=== PATIENT | male | born 1985 | race Caucasian/White ===

== ENCOUNTER 2017-06-05 11:18 | Emergency (ER) | payer OTHER ==
[~2017-06-05] VITALS: Ht 180.3 cm; Wt 81.0 kg
[~2017-06-05 11:18] MED LIST: ACET-1256 PO; AMOX875T PO
[2017-06-05 11:23] VITALS: TEMP 36.7; Ht 180.3 cm; Wt 81.0 kg
[2017-06-05] MEDS ORDERED: PROPARACAINE HCL 0.5% OP SOLN 15 ML BTL ONE (11:29)
[2017-06-05] MEDS ORDERED: OFLOXACIN 0.3% OP SOLN 5 ML BTL OP STA (13:17)
[2017-06-05] MEDS ORDERED: OXYC-57 PO ×2 (13:31→15:52)
--- NOTE | 2017-06-05 13:31 | EMERGENCY ROOM VISIT NOTE ---
History First contact with patient: 12:03 Chief Complaint: EYE ASSESSMENT Stated Complaint: LEFT EYE FOGGY History of Present Illness The patient is a 31 year old male who presents to the Emergency Room via private vehicle with complaints of "left eye foggy". The patient states that yesterday he was wearing contacts, remove them before bed but woke up today with extreme left eye pain. He states that now the vision in the left eye is foggy. He states he has had this before and had a corneal ulcer. He believes his tetanus is up-to-date. He rates the pain as a 9/10. Review of Systems A complete 6-point Review of Systems was discussed with the patient, with pertinent positives and negatives listed in the History of Present Illness. All remaining Review of Systems questions can be considered negative unless otherwise specified. Past Medical/Surgical History Medical Problems: (1) No significant past medical history Family History Diabetes mellitus Hypertension Social History Smoking Status: Never Smoker Alcohol Use: occasionally Housing Status: lives alone Occupation Status: employed Current/Historical Medications Scheduled PRN Oxycodone/Acetaminophen 5MG/325MG (Percocet 5MG/325MG), 1-2 TAB PO Q6 PRN for Pain Physical Exam Vital Signs Date Time Temp Pulse Resp B/P (MAP) Pulse Ox O2 Delivery O2 Flow Rate FiO2 06/05/17 14:08 77 18 120/70 99 06/05/17 13:30 77 20 122/76 99 Room Air 06/05/17 11:23 36.7 83 14 120/77 96 Room Air Right Eye Acuity: 20/20 Left Eye Acuity: 20/30 Physical Exam VITAL SIGNS - Vital signs and nursing notes were reviewed. Afebrile, normotensive at 120/77, non-tachycardic and is saturating well on room air at 96 %. GENERAL -31-year-old male appearing his stated age. Communicates well with provider and answers questions appropriately. HEAD - Normocephalic, Atraumatic. No Coyne's Sign or Raccoon's Eyes. No depressed skull fractures palpable. EYES - PERRL with EOMI bilaterally. Sclera of the bulbar without noticeable foreign body or excoriations. Bulbar injection noted in the left eye. Without subconjunctival hemorrhage. Palpebral conjunctiva pink and moist with no injection or discharge noted. Slit lamp examination performed as further described. EARS - No deformities of external structures noted on gross examination bilaterally. NOSE - Midline and without cyanosis. Without discharge. MOUTH/OROPHARYNX - Without perioral cyanosis. NECK - FROM assessed. No cervical lymphadenopathy noted. Slit Lamp Examination was performed of the left eye(s). Alcaine drops were applied to the affected eye(s) for proper anesthetization. The affected eye(s) were stained with Fluorescein stain to precipitate adequate visualization of any conjunctival/scleral excoriations or ulcers. The patient's face was comfortably rested on the chin guard of the slit lamp apparatus. The lights were dimmed and the affected eye(s) were thoroughly examined under microscopy using the blue light. Central diffuse uptake was present overlying the area of the cornea where the contact lens was there is superficial diffuse uptake consistent with either keratitis or early corneal ulcer. Additionally, the eye(s ) were examined under microscopy using the regular light. Close examination revealed no abnormalities. Patient tolerated the procedure well and no complications were met. Medical Decision & Procedures Medications Administered Medications (Trade) Dose Ordered Sig/Alfred Route Start Time Stop Time Status Last Admin Dose Admin Ofloxacin (Ocuflox 0.3% Oph Soln) 2 drops NOW STAT OP 06/05/17 13:17 06/05/17 13:18 DC 06/05/17 13:35 2 DROPS Medical Decision Patient was seen and evaluated as above. After obtaining a thorough history and physical examination visual acuity was obtained, without any significant abnormality. Examination with basically visual assessment was unremarkable. Slit lamp examination does reveal diffuse uptake over the central axis of vision consistent with either a keratitis or early development of a corneal ulceration. I did elect to discuss the case with the on-call soil conservationist/ rn security. I discussed this case with [facility], Dr. Jay who was in [facility]. They recommended the patient follow-up in their office later today. He prefers to follow-up in the [place] office. Prior to the patient's departure he noted that he has an appointment scheduled for 2:30 PM today. He was given Alcaine drops for his pain. He'll be given a short-term prescription of Percocet for his pain. He is not to drive while under the influence of this medication. He is to return with worsening. I do believe that prompt follow-up from the emergency department today is necessary. He was given ofloxacin drops as per recommendation by the rn security. He was educated upon worrisome symptoms which to return, had questions prior to discharge, and was discharged home in good condition. In the evaluation and treatment of this patient, the following differential diagnoses were considered: Corneal Abrasion, Conjunctivitis, Eye Contusion, Globe Injury, Orbital Floor Injury (Blowout Fracture), Corneal Ulcer, Keratitis , Herpes Zoster Opthalmic, Blepharitis, Orbital Cellulitis, Iritis, Scleritis/ Episcleritis, Uveitis, Temporal Arteritis, Subconjunctival Hemorrhage. Impression Primary Impression: Keratitis Additional Impression: Corneal ulcer of right eye Departure Information Dispostion Home / Self-Care Condition GOOD Prescriptions Oxycodone/Acetaminophen 5MG/325MG (PERCOCET 5MG/325MG) Tab 1-2 TABS PO Q6 Y for Pain, #20 TAB For Initial Treatment Prov: Phill Gautam PA-C 06/05/17 Referrals Shaw Seymour MD (PCP) Patient Instructions My [facility] Additional Instructions You have been treated in the Emergency Department for right eye pain. You have received pain medicine in the emergency department which impairs your ability to operate a vehicle. It is illegal for you to drive after receiving these medicines. You have been prescribed PERCOCET to be used for pain control. This is a narcotic medication. You cannot drive or consume alcohol while on this medicine. This medicine should only be used for pain that cannot be controlled with [id number] pain medicines. You were prescribed Ofloxacin to be used as directed by the eye doctor. This is an antibiotic. Stop this medication and contact a medical provider if you were to develop any significant adverse side effects including: wheezing, shortness of breath, passing out, vomiting, or a diffuse rash. Always take antibiotics as directed and COMPLETE the ENTIRE course regardless of the improvement of your symptoms. For pain control, you can use the following [id number] medicines (if >12 yo): NO TYLENOL WITH THE PERCOCET!! - Regular strength (200 mg/tab) Advil (ibuprofen) 1-2 tabs every 4-6 hours as needed. Do not exceed a dose of 3200 mg per day. Avoid rubbing your eyes for the next few days as this can cause irritation. Wear sunglasses when outside to help minimize your pain. You should relax in a quiet, dark room to help minimize your symptoms. You should seek evaluation of your eye doctor following your visit to the Emergency Department. They will be calling you soon. Return to the emergency department if you develop the following symptoms despite treatment course outlined above: blurry vision, loss of vision, fever, intractable pain, increased redness, swelling, or purulent discharge. Problem Qualifiers
[2017-06-05 14:08] VITALS: BP 120/70; PULSE 77; O2SAT 99
== END 2017-06-05 14:11 | disposition home or self-care (01) ==
LOC: C.EDB 11:20 → C.EDD 14:11
DX: H16.012 Central corneal ulcer, left eye (principal); Z83.3 Family history of diabetes mellitus; Z82.49 Family history of ischemic heart disease and other diseases of the circulatory system